=== PATIENT | female | born 1985 | race Hispanic/Latino ===

== ENCOUNTER 2017-12-31 09:34 | Emergency (ER) | payer OTHER ==
--- NOTE | 2017-12-31 10:09 | ED NECK/BACK PAIN COMPLAINT ---
History of Present Illness General Chief Complaint: Low Back Pain/Injury Stated Complaint: UPPER BACK PAIN RADIATING TO LEFT ARM Source: patient, family Exam Limitations: no limitations Vital Signs & Intake/Output Vital Signs & Intake/Output Vital Signs Date Time Temp Pulse Resp B/P B/P Pulse O2 O2 Flow FiO2 Mean Ox Delivery Rate 12/31 0944 97.0 86 20 119/82 98 Allergies Coded Allergies: No Known Allergies (12/31/17) Triage Note: PER PT UPPER BACK PAIN SINCE FRIDAY AND HAS GOTTEN PROGRESSIVELY WORSE, L ARM FEELS NUMB ALSO SINCE AM HURTS UPPER BACK TO SWALLOW DENIES CHANCE OF 800 MG MOTRIN WITHOUT EFFECT Triage Nurses Notes Reviewed? yes : No Patient currently breastfeeds: No HPI: Patient presents with 2 complaints. Her first complaint is pain to her left shoulder that radiates down to her left hand. Patient states that approximately 4 days ago she was on a slip and slide and then when she woke up the next morning she had this pain and on the left side of her neck and left shoulder. The pain is aching in nature and radiates down towards her left hand. There is no weakness or numbness. The pain increases with movement. She rates the pain at 8 out of 10. Patient's other complaint is feeling like something is stuck in her throat. Patient states she woke up at 4:00 in the morning with the symptoms. At 5:00 she took 800 mg of Motrin to try and help with her neck pain and she was able to swallow it however she states that it hurt to do so. The patient states that she did not have anything else other than last night when everything was fine. Patient states that since 4:00 this morning she has this sensation of something being stuck in her throat and she is getting pain whenever she swallows. Patient is able to swallow and breathe normally is just painful to do so. The pain in her throat radiates through to the back of her neck. She rates that pain also at 8 out of 10. Past History Travel History Traveled to [place] past 21 day No Medical History Any Pertinent Medical History? none Neurological: NONE EENT: NONE Cardiovascular: NONE Respiratory: NONE Gastrointestinal: NONE Hepatic: NONE Renal: NONE Musculoskeletal: NONE Psychiatric: NONE Endocrine: NONE Surgical History Surgical History: non-contributory Psychosocial History What is your primary language Haitian Tobacco Use: Never used ETOH Use: occasional use Illicit Drug Use: denies illicit drug use Family History Hx Contributory? No Review of Systems Review of Systems Constitutional: Reports: no symptoms. Eyes: Reports: no symptoms. Ears, Nose, Throat, Mouth: Reports: see HPI. Respiratory: Reports: no symptoms. Cardiovascular: Reports: no symptoms. Gastrointestinal/Abdominal: Reports: no symptoms. Musculoskeletal: Reports: see HPI, muscle pain, neck pain. Skin: Reports: no symptoms. Neurological/Psychological: Reports: no symptoms. All Other Systems: Reviewed and Negative Physical Exam Physical Exam General Appearance: well developed/nourished, mild distress Head: atraumatic Eyes: Bilateral: PERRL, EOMI. Ears, Nose, Throat, Mouth: hearing grossly normal Neck: normal inspection, supple, full range of motion, no midline tenderness Respiratory: normal breath sounds, chest non-tender, no respiratory distress, lungs clear Cardiovascular: regular rate/rhythm, normal peripheral pulses Gastrointestinal: normal bowel sounds, soft, non-tender Back: normal inspection, no vertebral tenderness Extremities: normal range of motion Neurologic/Psych: awake, alert, oriented x 3, normal mood/affect Skin: intact, normal color, warm/dry Core Measures CVA/TIA Diagnosis: No Progress Differential Diagnosis: C spine injury, herniated disc, myofascial strain Plan of Care: Orders Procedure Date/time Status HUMAN BETA HCG SCREEN 12/31 1024 Complete COMPREHENSIVE METABOLIC PANEL 12/31 1024 Complete CBC WITHOUT DIFFERENTIAL 12/31 1024 Complete Laboratory Tests 12/31/17 1039: Anion Gap 11, Estimated GFR > 60, BUN/Creatinine Ratio 23.3, Glucose 84, Calcium 9.3, Total Bilirubin 1.4 H, AST 25, ALT 25, Alkaline Phosphatase 50, Total Protein 7.7, Albumin 4.5, Globulin 3.2, Albumin/Globulin Ratio 1.4, Total Beta HCG NEGATIVE, CBC w Diff NO MAN DIFF REQ, RBC 4.87, MCV 74.2 L, MCH 24.4 L, MCHC 32.8 L, RDW 16.8 H, MPV 8.5, Gran % 74.7, Lymphocytes % 16.4 L, Monocytes % 7.7, Eosinophils % 0.8, Basophils % 0.4, Absolute Granulocytes 5.1, Absolute Lymphocytes 1.1 L, Absolute Monocytes 0.5, Absolute Eosinophils 0.1, Absolute Basophils 0 Diagnostic Imaging: Viewed by Me: CT Scan. Discussed w/RAD: CT Scan. Radiology Impression: PATIENT: PETER BASSETT PRESENT AGE: 32 PATIENT ACCOUNT NO: [id number] : 85 LOCATION: [facility] ORDERING PHYSICIAN: Anant Youngblood MD SERVICE DATE: 12/31/17 EXAM TYPE: CAT - CT NECK W IV CONTRAST EXAMINATION: CT NECK WITH CONTRAST CLINICAL INFORMATION: Neck pain radiating to left shoulder. Presumptive diagnosis of possible esophageal foreign body or herniated disc. COMPARISON: None TECHNIQUE: Multidetector CT imaging examination of the neck was performed with intravenous administration of 94 mL of Optiray 320 nonionic contrast material. DLP: 487 mGy- cm FINDINGS: Parotid glands, submandibular glands, and thyroid gland are normal. The nasopharynx, oral cavity, tongue base, and tonsillar pillars are unremarkable. No contour abnormality or pathologic enhancement within the oral cavity or pharyngeal mucosal space. The parapharyngeal fat planes are preserved. The hypopharynx, epiglottis, and preepiglottic space are normal. Laryngeal structures normal. No masses or fluid collections in the deep soft tissues. There are normal sized lymph nodes of the suprahyoid and infrahyoid neck without evidence of lymphadenopathy by size criteria. The visualized portion of the esophagus is normal. No esophageal wall thickening or intraluminal foreign body. The visualized carotid and vertebral arteries opacify normally; venous structures are unremarkable; no thrombophlebitis. Skull base is intact and the mastoid air cells and middle ear cavities are clear. Incidentally noted is mucosal thickening of the sphenoid sinus an inferior right maxillary sinus. Otherwise, the paranasal sinuses are well aerated. The orbital barajas, globes and retrobulbar soft tissues are unremarkable. The cervical vertebra have normal density, height and alignment. The intervertebral discs are unremarkable. No evidence of disc herniation. No evidence of central spinal canal or neural foraminal stenosis. No prevertebral soft tissue swelling. Lung apices are clear and the visualized trachea is widely patent. IMPRESSION: 1. Soft tissues of the neck are normal. No soft tissue mass, focal inflammation or lymphadenopathy. 2. The visualized esophagus is normal. 3. No evidence of cervical disc herniation. 4. Incidentally noted is mild mucosal thickening of the sphenoid and inferior right maxillary sinus. DICTATED BY: Vinicio Carvlaho MD DATE/TIME DICTATED:1204 [place] PRINTER:LA DATE/TIME TRANSCRIBED:12/31/171204 CONFIDENTIAL, DO NOT COPY WITHOUT APPROPRIATE AUTHORIZATION. <Electronically signed in Other Vendor System> SIGNED BY: Vinicio Carvalho MD 12/31/17 1221 Comments: After the Toradol and Flexeril the pain decreased a 6 out of 10. Patient has been updated on Levaquin CAT scan results. Patient is stable for discharge. Departure Departure Disposition: HOME OR SELF CARE Condition: Stable Clinical Impression Primary Impression: Myofacial muscle pain Referrals: Patient Has No Primary Care Dr (PCP/Family) Additional Instructions: USE MOIST HEAT RETURN IF SYMPTOMS WORSEN OR FOR ANY CONCERNS Both the Percocet and the Flexeril will make you sleepy so do not drive after taking either one of them. The Percocet is also constipated so take a stool softener while you're on it. Departure Forms: Customer Survey General Discharge Information Prescriptions: Current Visit Scripts Cyclobenzaprine HCl 1 TAB PO Q8P #20 TAB Oxycodone HCl/Acetaminophen (Percocet 5-325 MG Tablet) 1-2 TAB PO Q6P PRN PAIN #20 TAB
[2017-12-31 10:55] LABS: ABSOLUTE BASOPHIL COUNT 0 /CUMM (0.0-0.2); ABSOLUTE EOSINOPHIL COUNT 0.1 /CUMM (0.0-0.7); ABSOLUTE GRANULOCYTE CT 5.1 /CUMM (1.4-6.5); ABSOLUTE LYMPH COUNT 1.1 /CUMM (1.2-3.4); ABSOLUTE MONOCYTE COUNT 0.5 /CUMM (0.10-0.60); BASOPHIL % 0.4 % (0.0-2.0); EOSINOPHIL % 0.8 % (0-5); GRANULOCYTE % 74.7 % (42.2-75.2); HEMATOCRIT 36.2 % (37-47); MEAN CORPUSCULAR HGB 24.4 PG (27.0-31.0); MEAN CORPUSCULAR HGB CONC 32.8 G/DL (33.0-37.0); MEAN CORPUSCULAR VOLUME 74.2 FL (81.0-99.0); MEAN PLATELET VOLUME 8.5 FL (7.4-10.4); PLATELET COUNT 254 /CUMM (130-400); RBC DISTRIBUTION WIDTH 16.8 % (11.5-14.5); RED BLOOD CELL CT 4.87 /CUMM (4.20-5.40); WHITE BLOOD CELL COUNT 6.9 /CUMM (4.8-10.8)
--- NOTE | 2017-12-31 12:21 | CT SCAN REPORT ---
EXAMINATION: CT NECK WITH CONTRAST CLINICAL INFORMATION: Neck pain radiating to left shoulder. Presumptive diagnosis of possible esophageal foreign body or herniated disc. COMPARISON: None TECHNIQUE: Multidetector CT imaging examination of the neck was performed with intravenous administration of 94 mL of Optiray 320 nonionic contrast material. DLP: 487 mGy-cm FINDINGS: Parotid glands, submandibular glands, and thyroid gland are normal. The nasopharynx, oral cavity, tongue base, and tonsillar pillars are unremarkable. No contour abnormality or pathologic enhancement within the oral cavity or pharyngeal mucosal space. The parapharyngeal fat planes are preserved. The hypopharynx, epiglottis, and preepiglottic space are normal. Laryngeal structures normal. No masses or fluid collections in the deep soft tissues. There are normal sized lymph nodes of the suprahyoid and infrahyoid neck without evidence of lymphadenopathy by size criteria. The visualized portion of the esophagus is normal. No esophageal wall thickening or intraluminal foreign body. The visualized carotid and vertebral arteries opacify normally; venous structures are unremarkable; no thrombophlebitis. Skull base is intact and the mastoid air cells and middle ear cavities are clear. Incidentally noted is mucosal thickening of the sphenoid sinus an inferior right maxillary sinus. Otherwise, the paranasal sinuses are well aerated. The orbital barajas, globes and retrobulbar soft tissues are unremarkable. The cervical vertebra have normal density, height and alignment. The intervertebral discs are unremarkable. No evidence of disc herniation. No evidence of central spinal canal or neural foraminal stenosis. No prevertebral soft tissue swelling. Lung apices are clear and the visualized trachea is widely patent. IMPRESSION: 1. Soft tissues of the neck are normal. No soft tissue mass, focal inflammation or lymphadenopathy. 2. The visualized esophagus is normal. 3. No evidence of cervical disc herniation. 4. Incidentally noted is mild mucosal thickening of the sphenoid and inferior right maxillary sinus.
[2017-12-31] MEDS ORDERED: PERCOCET 5-3251 EACH PO (12:26)
[2017-12-31] MEDS ORDERED: CYCLOBENZAPRINE10 M1 PO (12:26)
[2017-12-31 12:44] VITALS: BP 120/80
== END 2017-12-31 12:45 ==
LOC: ERH 09:34
PROVIDERS: Emergency Medicine
DX: M79.1 Myalgia (principal)
CPT/HCPCS: 96374; 96375; J0171; J1885